=== PATIENT | female | born 1965 | race African-American/Black ===

== ENCOUNTER 2024-03-25 20:38 | Emergency (ER) | payer OTHER ==
--- NOTE | 2024-03-25 21:04 | ED ---
URI HPI <Víctor Solis - Last Filed: 03/26/24 08:18> - General Source: patient, RN notes reviewed Mode of arrival: ambulatory Limitations: no limitations - History of Present Illness MD Complaint: cough Onset/Timin -: days(s) Consistency: constant Improves With: nothing Worsens With: nothing Context: sick contacts Associated Symptoms: headache Treatments Prior to Arrival: none <Wan Blackwell - Last Filed: 03/27/24 14:45> - General Chief Complaint: Upper Respiratory Infection Stated Complaint: Congestion,SOB Time Seen by Provider: 03/25/24 20:52 - History of Present Illness Initial Comments: This is a 58-year-old female with history of DM presenting with cough and headache (11/23) x 4 days. Patient states she is also had a decreased appetite, eating and drinking little for the past 2 days. Denies [id number] medication use. Mentions new blurring of vision attributed to diabetes. Denies fever, chills, chest pain, dyspnea, hemoptysis, abdominal pain, N/V/D. (Wan Blackwell) - Related Data Previous Rx's Medication Instructions Recorded Albuterol Inhaler [Ventolin Hfa 1 - 2 puff INHALATION Q6HR PRN #2 03/26/24 Inhaler] each predniSONE 50 mg PO DAILY 5 Days #5 tab 03/26/24 Allergies Allergy/AdvReac Type Severity Reaction Status Date / Time No Known Allergies Allergy Verified 03/25/24 21:06 Review of Systems ROS Other: All systems not noted in ROS Statement are negative. <Víctor Solis - Last Filed: 03/26/24 08:18> ROS Other: All systems not noted in ROS Statement are negative. <Wan Blackwell - Last Filed: 03/27/24 14:45> ROS Statement: Those systems with pertinent positive or pertinent negative responses have been documented in the HPI. Past Medical History Past Medical History: Diabetes Mellitus, Hypertension History of Any Multi-Drug Resistant Organisms: None Reported Past Surgical History: No Surgical Hx Reported Past Psychological History: No Psychological Hx Reported Smoking Status: Never smoker Past Alcohol Use History: None Reported Past Drug Use History: None Reported <Wan Blackwell - Last Filed: 03/27/24 14:45> General Exam Limitations: no limitations General appearance: alert, in no apparent distress Head exam: Present: atraumatic, normocephalic, normal inspection Eye exam: Present: normal appearance, PERRL, EOMI. Absent: scleral icterus, conjunctival injection, periorbital swelling ENT exam: Present: normal exam, mucous membranes moist Neck exam: Present: normal inspection. Absent: tenderness, meningismus, lymphadenopathy Respiratory exam: Present: rhonchi (Bases of bilateral lower lobes), decreased breath sounds, prolonged expiratory. Absent: respiratory distress, wheezes, rales, stridor, accessory muscle use Cardiovascular Exam: Present: regular rate, normal rhythm, normal heart sounds. Absent: systolic murmur, diastolic murmur, rubs, gallop, clicks GI/Abdominal exam: Present: soft, normal bowel sounds. Absent: distended, tenderness, guarding, rebound, rigid Extremities exam: Present: normal inspection, full ROM, normal capillary refill. Absent: tenderness, pedal edema, joint swelling, calf tenderness Back exam: Present: normal inspection Neurological exam: Present: alert, oriented X3, CN II-XII intact Psychiatric exam: Present: normal affect, normal mood Skin exam: Present: warm, dry, intact, normal color. Absent: rash <Wan Blackwell - Last Filed: 03/27/24 14:45> Course Vital Signs 03/25/24 03/25/24 03/25/24 20:40 21:50 21:58 Temperature 98.4 F Pulse Rate 99 75 78 Respiratory 17 Rate Blood Pressure 115/80 O2 Sat by Pulse 94 L Oximetry 03/25/24 23:20 Temperature 98 F Pulse Rate 100 Respiratory 18 Rate Blood Pressure 104/53 O2 Sat by Pulse 96 Oximetry Medical Decision Making <Wan Blackwell - Last Filed: 03/27/24 14:45> - Medical Decision Making Was pt. sent in by a medical professional or institution (, PA, GOLD BEATER, urgent care, hospital, or snf...) When possible be specific @ -No Did you speak to anyone other than the patient for history (EMS, parent, family, police, friend...)? What history was obtained from this source @ -No Did you review nursing and triage notes (agree or disagree)? Why? @ -I reviewed and agree with nursing and triage notes Were old charts reviewed (outside hosp., previous admission, EMS record, old EKG, old radiological studies, urgent care reports/EKG's, snf records)? Report findings @ -No old charts were reviewed Differential Diagnosis (chest pain, altered mental status, abdominal pain women, abdominal pain men, vaginal bleeding, weakness, fever, dyspnea, syncope, headache, dizziness, GI bleed, back pain, seizure, CVA, palpatations, mental health, musculoskeletal)? @ -Differential Fever: Pneumonia, viral URI, endocarditis, myocarditis, pericarditis, otitis, sinusitis, peritonsillar Abscess, retropharyngeal Abscess, epiglottitis, peritonitis, appendicitis, Stefani cystitis, diverticulitis, hepatitis, colitis, UTI, PID, TOA, pyelonephritis, prostatitis, epididymitis, meningitis, encephalitis, pulmonary embolism, CVA, thyroid storm, pancreatitis, adrenal crisis, cavernous sinus thrombosis, this is not meant to be an all-inclusive list. EKG interpreted by me (3pts min.). @ -Not done X-rays interpreted by me (1pt min.). @ -CXR shows mild vascular prominence and minimal right pleural effusion. CT interpreted by me (1pt min.). @ -None done U/S interpreted by me (1pt. min.). @ -None done What testing was considered but not performed or refused? (CT, X-rays, U/S, labs)? Why? @ -None What meds were considered but not given or refused? Why? @ -None Did you discuss the management of the patient with other professionals (professionals i.e. , PA, GOLD BEATER, lab, RT, psych nurse, social group worker, security systems administrator, teacher, asset protection officer, director case management)? Give summary @ -No Was smoking cessation discussed for >3mins.? @ -No Was critical care preformed (if so, how long)? @ -No Were there social determinants of health that impacted care today? How? (Homelessness, low income, unemployed, alcoholism, drug addiction, transportation, low edu. Level, literacy, decrease access to med. care, longterm, rehab)? @ -No Was there de-escalation of care discussed even if they declined (Discuss DNR or withdrawal of care, Hospice)? DNR status @ -No What co-morbidities impacted this encounter? (DM, HTN, Smoking, COPD, CAD, Cancer, CVA, ARF, Chemo, Hep., AIDS, mental health diagnosis, sleep apnea, morbid obesity)? @ -DM Was patient admitted / discharged? Hospital course, mention meds given and route, prescriptions, significant lab abnormalities, going to OR and other pertinent info. @ -Cepheid test positive for influenza A. [id number] glucose 111. CXR shows mild vascular prominence and minimal right pleural effusion. Patient given DuoNeb and Solu-Medrol for breathing issues and Toradol for headache. Prednisone and albuterol inhaler sent to patient's pharmacy. Discussed patient with Dr. Solis and Dr. Julio. Undiagnosed new problem with uncertain prognosis? @ -No Drug Therapy requiring intensive monitoring for toxicity (Heparin, Nitro, Insulin, Cardizem)? @ -No Were any procedures done? @ -No Diagnosis/symptom? @ -Influenza A Acute, or Chronic, or Acute on Chronic? @ -Acute Uncomplicated (without systemic symptoms) or Complicated (systemic symptoms)? @ -Uncomplicated Side effects of treatment? @ -No Exacerbation, Progression, or Severe Exacerbation? @ -No Poses a threat to life or bodily function? How? (Chest pain, USA, OR, pneumonia, PE, COPD, DKA, ARF, appy, cholecystitis, CVA, Diverticulitis, Homicidal, Suicidal, threat to staff... and all critical care pts) @ -No (Wan Blackwell) - Lab Data Lab Results 03/25/24 03/25/24 Range/Units 21:02 21:44 POC Glucose (mg/dL) 111 H (70-110) mg/dL POC Glu Drafter (Cad) Electronic ID Monique Fischer Influenza Type A (PCR) Detected A (Not Detectd) Influenza Type B (PCR) Not Detected (Not Detectd) RSV (PCR) Not Detected (Not Detectd) SARS-CoV-2 (PCR) Not Detected (Not Detectd) Disposition <Víctor Solis - Last Filed: 03/26/24 08:18> Is patient prescribed a controlled substance at d/c from ED?: No Time of Disposition: 22:58 <Wan Blackwell - Last Filed: 03/27/24 14:45> Clinical Impression: Influenza Disposition: HOME SELF-CARE Condition: Good Instructions (If sedation given, give patient instructions): Influenza (ED) Prescriptions: predniSONE 50 mg PO DAILY 5 Days #5 tab Albuterol Inhaler [Ventolin Hfa Inhaler] 1 - 2 puff INHALATION Q6HR PRN #2 each PRN Reason: Difficulty breathing Referrals: Nonstaff,Physician [Primary Care Provider] - 1-2 days
[2024-03-25] MEDS: KETOROLAC 15 MG/ML 1 ML VIAL IM STA (21:16)
[2024-03-25] MEDS: methylPREDNISolone SOD SUCCI 125 MG/2 ML VIAL IM ONE (21:17)
--- NOTE | 2024-03-25 21:23 | XR ---
EXAMINATION TYPE: XR chest 2V DATE OF EXAM: 03/25/2024 9:18 PM COMPARISON: None. CLINICAL INDICATION: Female, 58 years old with history of Cough, upper respiratory symptoms films x4 days TECHNIQUE: XR chest 2V view(s) obtained. FINDINGS: The heart size is normal. The pulmonary vasculature is somewhat prominent. Minimal posterior pleural effusion is present on the lateral projection likely at the right base.. No suspicious consolidations. IMPRESSION: 1. Mild vascular prominence and some minimal right pleural effusion. [facility], , 03/25/2024 9:21 PM
[2024-03-25 21:46] LABS: Glucose,Whole Blood 111 mg/dL (70-110)
[2024-03-25] MEDS: IPRATROPIUM-ALBUTEROL 3 ML NEB INHALATION STA (21:48)
[2024-03-25 23:20] VITALS: BP 104/53; PULSE 100; RESP 18; TEMP 98
== END 2024-03-25 23:35 | disposition home or self-care (01) ==
LOC: EC 20:38
DX: J11.1 Influenza due to unidentified influenza virus with other respiratory manifestations (principal); E11.9 Type 2 diabetes mellitus without complications
CPT/HCPCS: 36415; 94640; 87636; 71046; 99284; 96372 ×2; J1885; J2919